=== PATIENT | female | born 1955 | race Caucasian/White ===

== ENCOUNTER 2016-11-21 07:05 | Day surgery (SDC) | payer MEDICAID ==
[2016-11-20 11:08] LABS: HEMATOCRIT 42.2 % (36.0-48.0); HEMOGLOBIN 14.1 g/dL (12-16); MCH 29.6 pg (26.0-34.0); MCHC 33.4 g/dL (31.0-37.0); MCV 88.5 fL (80.0-100.0); MEAN PLATELET VOLUME 10.6 fL (7.4-10.4); RBC 4.77 10x6/uL (4.00-5.40); RDW 12.8 % (11.5-14.5); WBC 8.8 10x3/uL (4.8-10.8)
[2016-11-20 11:26] LABS: ANION GAP 12.9 mmol/L (8-16); CALCIUM 8.9 mg/dL (8.5-10.1); CARBON DIOXIDE 28.6 mmol/L (21.0-32.0); CREATININE - SERUM 0.9 mg/dL (0.6-1.3); POTASSIUM - SERUM 3.5 mmol/L (3.5-5.1)
[~2016-11-21] VITALS: Ht 175.3 cm; Wt 90.7 kg
[2016-11-21 06:33] VITALS: BP 148/88; Ht 175.3 cm; Wt 90.7 kg
[~2016-11-21 07:05] MED LIST: ABILIFY2 MG PO; ADDERALL 20 MG20 M1 PO; FERROUS SULFAT325 MG PO; HYDROCHLOROTH12.5 M1 PO; MOBIC7.5 MG PO; PROZAC20 MG PO; STOOL SOFTENER100 M1 PO; VITAMIN D31000 UNI2 PO; WELLBUTRIN SR150 MG PO
[2016-11-21] MEDS ORDERED: PERCOCET 5-3251 TAB PO (08:19)
--- NOTE | 2016-11-21 11:15 | OP ---
PATIENT NAME: BREANNA BIRD MEDICAL RECORD: [id number] :55 LOCATION:[facility] ADMISSION DATE: SURGEON: RG HAMMOND DO DATE OF OPERATION: 11/21/2016 PROCEDURES PERFORMED: Left knee arthroscopy with partial medial meniscectomy. PREOPERATIVE DIAGNOSIS: Medial meniscal tear. POSTOPERATIVE DIAGNOSES: Medial meniscal tear with chondromalacia, grade III, of the patella, medial femoral condyle and medial tibial plateau. INDICATIONS: Ms. Brid is a 60-year-old female that presented to the office with longstanding left knee pain. She does have some catching, popping, locking. X-rays did show some decreased joint space in the medial side; however, the meniscal symptoms outweigh the osteoarthritis symptoms and she had an MRI, which showed medial meniscal tear. She chose to try the knee scope and then we discussed further surgical options. We consented her for the knee scope with partial medial meniscectomy. DESCRIPTION OF PROCEDURE: Ms. Bird was taken to the operative suite, placed in supine position, given general anesthetic. Timeout was performed, given 2 grams of Ancef preoperatively. The left leg was prepped and draped. Everyone was in agreement with the correct side, site and patient. Once the knee was prepped and draped, the portal sites were injected with 0.25% Marcaine with epinephrine on the medial and lateral anterior portal sites with 4 mL each. At this time, the lateral portal was established with an 11-blade scalpel. The trocar was placed into the knee and up into the suprapatellar pouch. Scope was placed into the cannula and diagnostic arthroscopy began first on the suprapatellar pouch noting some chondromalacia on the patella, mostly on the medial facet. The lateral gutter was then viewed and no loose bodies were seen. Medial gutter was then seen and no loose bodies seen. The knee was then flexed approximately 90 degrees. The medial joint was entered noting the chondromalacia on the femoral condyle on the medial side as well as the tibia, as well as the medial meniscus. The shaver was then entered and cleaned up some of the fat pad and increased viewing. The medial meniscus was then bit out with an upbiter, all the tear was using the shaver as well, using this combo back to a stable position. The medial meniscus was probed at that time and not seen to be unstable after that. Some of the chondromalacia was cleaned up as well with a shaver on the medial femoral condyle as well the tibia. The knee was then brought back into flexion and the ACL was probed and seen to be in good taut and not loose. The probe was then placed behind the lateral femoral condyle and the knee was brought in the figure-four position. The medial compartment was entered and no chondromalacia was seen on the femur or the tibia. The lateral meniscus was probed and did not show any signs of loosening or any tears. The knee was then brought into extension and the suprapatellar pouch was then entered again. A partial synovectomy was done at that time and the knee scope was removed from the knee and excess fluid was drained off. The portal sites were then closed with 4-0 Monocryl in inverted interrupted fashion. Steri-Strips were placed over them. Adaptic, 4 x 4s, ABD, Webril and Brian wrap were then placed over the knee and a knee-high LEONOR hose was placed on the patient. This is all done. The patient was awakened in stable condition taken to recovery. Blood loss was minimal. TRANSINT:[id number] Voice Confirmation ID: [id number] DOCUMENT ID: [id number] OPERATIVE REPORT [id number] BREANNA BIRD MICHAEL D, DO at 1115 CC: [id number] DICTATION DATE: 11/21/16824 ANGLE ROLL OPERATOR: 11/21/16 0937 [id number] [place] [address]
--- NOTE | 2016-11-21 12:04 | NUR ---
0920 C/O PAIN ,PAIN MED GIVE FOR PAIN LEVEL OF 7 1015 CHEL HERE , INSTRUCTED ON USE 1030 IV DC WITH CATHER TIP INTACT
== END 2016-11-21 10:45 | disposition home or self-care (01) ==
LOC: D.OPS 07:05 → D.PAN 07:30 → D.OPS 10:45
PROVIDERS: Anesthesiology
DX: S83.242A Other tear of medial meniscus, current injury, left knee, initial encounter (principal); I10 Essential (primary) hypertension; K21.9 Gastro-esophageal reflux disease without esophagitis; E66.9 Obesity, unspecified; Z68.29 Body mass index [BMI] 29.0-29.9, adult; Z01.812 Encounter for preprocedural laboratory examination

== ENCOUNTER → 2017-02-12 09:44 | Outpatient (CLI) | payer MEDICAID ==
[2016-11-21 06:33] VITALS: BMI 29.6
[~2017-02-12 09:44] MED LIST changes: +PERCOCET 5-3251 TAB PO
== END | disposition home or self-care (01) ==
LOC: D.MRI 02-10 11:00
DX: M25.562 Pain in left knee (principal)

== ENCOUNTER 2017-08-05 08:16 | Outpatient (CLI) | payer MEDICAID ==
[2016-11-21 06:33] VITALS: BMI 29.6
== END 2017-08-05 08:17 | disposition home or self-care (01) ==
LOC: D.MAMMO 08:16
DX: Z12.31 Encounter for screening mammogram for malignant neoplasm of breast (principal)

== ENCOUNTER 2017-09-09 08:00 | Outpatient (CLI) | payer MEDICAID ==
[2016-11-21 06:33] VITALS: BMI 29.6
== END 2017-09-09 09:00 | disposition home or self-care (01) ==
LOC: D.MAMMO 08:00
DX: R92.8 Other abnormal and inconclusive findings on diagnostic imaging of breast (principal)

== ENCOUNTER → 2017-09-18 08:00 | Outpatient (CLI) | payer MEDICAID ==
[2016-11-21 06:33] VITALS: BMI 29.6
== END ==
LOC: D.MAMMO 08:00
DX: R92.8 Other abnormal and inconclusive findings on diagnostic imaging of breast (principal)

== ENCOUNTER → 2018-06-30 17:38 | Outpatient (CLI) | payer OTHER ==
[2016-11-21 06:33] VITALS: BMI 29.6
== END | disposition home or self-care (01) ==
LOC: D.LABREF 17:38
PROVIDERS: ATTEND Orthopaedic Surgery
DX: M17.12 Unilateral primary osteoarthritis, left knee (principal)

== ENCOUNTER 2018-07-06 12:23 | Inpatient (IN) | payer OTHER ==
[~2018-07-06] VITALS: Ht 175.3 cm; Wt 86.8 kg
[2018-07-14 11:49] LABS: CALC OSMOLALITY 277 mosm/kg (275-300); CALCIUM 9.1 mg/dL (8.5-10.1); CARBON DIOXIDE 28.5 mmol/L (21.0-32.0); CHLORIDE - SERUM 101 mmol/L (98-107); CREATININE - SERUM 0.8 mg/dL (0.6-1.3); GLUCOSE 101 mg/dL (74-106); POTASSIUM - SERUM 3.9 mmol/L (3.5-5.1); SODIUM 138 mmol/L (136-145); UREA NITROGEN 18 mg/dL (7-18); eGFR NON AFRICAN AMERICAN 77 mL/min (90-120)
[2018-07-14 11:52] LABS: APTT 27.2 SECONDS (22.8-39.4); INR 0.98 (0.85-1.17); PROTIME 12.5 SECONDS (11.6-15.0)
[2018-07-14 11:56] LABS: BASOPHILS 0.3 % (0-2); EOSINOPHILS 2.8 % (0-7); HEMATOCRIT 44.1 % (36.0-48.0); HEMOGLOBIN 14.7 g/dL (12-16); IMMATURE GRANULOCYTES 0.2 % (0-5); LYMPHOCYTES 22.3 % (15-50); MCH 28.9 pg (26.0-34.0); MCHC 33.3 g/dL (31.0-37.0); MCV 86.6 fL (80.0-100.0); MEAN PLATELET VOLUME 11.1 fL (7.4-10.4); MONOCYTES 7.8 % (2-11); NEUTROPHILS 66.6 % (40-80); PLATELET COUNT 210 10x3/uL (130-400); RBC 5.09 10x6/uL (4.00-5.40); RDW 13.2 % (11.5-14.5)
[2018-07-14 12:28] LABS: APPEARANCE SL CLDY (CLEAR); BACTERIA MODERATE /hpf (NONE SEEN); BILIRUBIN NEGATIVE (NEGATIVE); COLOR YELLOW (YELLOW); EPITHELIAL CELLS 0-5 /hpf (0-5); GLUCOSE NEGATIVE (NEGATIVE); KETONE NEGATIVE (NEGATIVE); MUCUS <1+ /lpf (NONE SEEN); NITRITE NEGATIVE (NEGATIVE); PROTEIN NEGATIVE (NEGATIVE); RED CELLS - URINE 0-5 /hpf (0-5); UROBILINOGEN NORMAL (NORMAL); WHITE CELLS - URINE 0-5 /hpf (0-5)
[2018-07-20 07:31] VITALS: BP 126/91; BMI 28.4
--- NOTE | 2018-07-20 11:28 | NUR ---
PLASMA BLADE USED, GROUNDING PAD LOT [id number] EXP. 09/04/2019
--- NOTE | 2018-07-20 13:25 | NUR ---
PT CONTINUES TO C/O PAIN. DR. PAT AT BEDSIDE TO [facility].
[2018-07-20 15:14] VITALS: BP 130/76; Ht 175.3 cm; Wt 86.8 kg
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
[2018-07-20 18:52] VITALS: BP 110/69
--- NOTE | 2018-07-20 19:54 | NUR ---
RESTING QUEITLY. NO DISTRESS NOTED.GOLDIE WRAP INTACT TO LEFT KNEEE WITHOUT DRAINAGE NOTED. CPM APPLIED.TOLERATING WELL. IV TO RIGHT HAND WITHOUT REDNESS OR EDEMA NOTED. CL IN REACH
[2018-07-20 21:37] VITALS: BP 104/73
[2018-07-20 22:27] LABS: APPEARANCE HAZY (CLEAR); BACTERIA MODERATE /hpf (NONE SEEN); BILIRUBIN NEGATIVE (NEGATIVE); COLOR YELLOW (YELLOW); EPITHELIAL CELLS 0-5 /hpf (0-5); GLUCOSE NEGATIVE (NEGATIVE); KETONE NEGATIVE (NEGATIVE); NITRITE NEGATIVE (NEGATIVE); PROTEIN NEGATIVE (NEGATIVE); RED CELLS - URINE 0-5 /hpf (0-5); SPECIFIC GRAVITY 1.025 (1.005-1.020); UROBILINOGEN NORMAL (NORMAL); WHITE CELLS - URINE 0-5 /hpf (0-5)
[2018-07-21] VITALS (7 sets, daily range): BP systolic 98–120; BP diastolic 52–80
--- NOTE | 2018-07-21 03:51 | NUR ---
I have reviewed this patient and I concur with the Shift Assessment completed by the Licensed Practical Nurse today this shift.
[2018-07-21 06:35] LABS: BASOPHILS 0.1 % (0-2); EOSINOPHILS 0 % (0-7); HEMATOCRIT 39.2 % (36.0-48.0); HEMOGLOBIN 12.7 g/dL (12-16); IMMATURE GRANULOCYTES 0.5 % (0-5); LYMPHOCYTES 6.4 % (15-50); MCH 28.7 pg (26.0-34.0); MCHC 32.4 g/dL (31.0-37.0); MCV 88.5 fL (80.0-100.0); MEAN PLATELET VOLUME 10.9 fL (7.4-10.4); MONOCYTES 6.6 % (2-11); NEUTROPHILS 86.4 % (40-80); PLATELET COUNT 199 10x3/uL (130-400); RBC 4.43 10x6/uL (4.00-5.40); RDW 13.5 % (11.5-14.5); WBC 16.8 10x3/uL (4.8-10.8)
[2018-07-21 06:53] LABS: CALC OSMOLALITY 278 mosm/kg (275-300); CALCIUM 8.5 mg/dL (8.5-10.1); CARBON DIOXIDE 29.5 mmol/L (21.0-32.0); CHLORIDE - SERUM 101 mmol/L (98-107); CREATININE - SERUM 0.7 mg/dL (0.6-1.3); GLUCOSE 129 mg/dL (74-106); POTASSIUM - SERUM 3.8 mmol/L (3.5-5.1); SODIUM 138 mmol/L (136-145); UREA NITROGEN 14 mg/dL (7-18); eGFR NON AFRICAN AMERICAN 90 mL/min (90-120)
--- NOTE | 2018-07-21 08:21 | NUR ---
AAOX4. ON 2LPM VIA NC, IV TO RIGHT HAND, PATENT, INFUSING NS1/2 AT 100ML/HR, CPM PRESENT TO LEFT LEG WITH GOLDIE BANDAGE AND LEONOR HOSES, SCD TO RIGHT LEG, DENIES ANY CURRENT NEEDS OR DISCOMFORTS, BED LOWERED AND LOCKED, CALL LIGHT WITHIN REACH. CPOC
--- NOTE | 2018-07-21 16:29 | MORECARE ---
CASE MANAGEMENT DISCHARGE SUMMARY PATIENT: BREANNA BIRD EZEQUIEL UNIT: [id number] ADM DATE: 07/20/18 AGE: 62 : 55 SEX: F ROOM/BED: D.2229 AUTHOR: TAYLER YOUNG PHYSICIAN: REFERRING PHYSICIAN: RG HAMMOND DO DATE OF SERVICE: 07/21/18 Discharge Plan Patient Name: BREANNA BIRD [facility] [facility] 1955 Planned Disposition: Home Anticipated Discharge Date: Discharge Date: Expected LOS: Initial Reviewer: [email or web address] Initial Review Date: 07/21/2018 Generated: 07/21/18 5:29 pm DCPIA - Discharge Planning Initial Assessment Updated by [email or web address]: Tory Williamson on 07/21/18 4:28 pm * Is the patient Alert and Oriented? Yes * How many steps to enter\exit or inside your home? 2/0 * PCP Nasra Ireland * Pharmacy [facility] on [address] * Preadmission Environment Home with Family * ADLs Independent * Equipment Bedside Commode Other Walker * Other Equipment CPM Ice machine * List name and contact numbers for known caregivers / representatives who currently or will assist patient after discharge: [facility] - [phone] * Verbal permission to speak to the caregivers and representatives has been obtained from the patient. Yes * Community resources currently utilized None * Additional services required to return to the preadmission environment? Yes * Can the patient safely return to the preadmission environment? Yes * Has this patient been hospitalized within the prior 30 days at any hospital? No External Providers External Provider: OTHER-OTHER Next Contact Date: Service Request Date: Service Type: Resolution: Reviewer: Comments: Patient Name: BREANNA BIRD Page [id number] at 1629 All edits/amendments must be made on the electronic document DICTATION DATE: 07/21/181628 DRILLER AND BROACHER: SARA 07/21/181628 RPT#: [id number] DC DATE: STATUS: ADM IN [facility] [address] [place] [address] END OF REPORT
--- NOTE | 2018-07-21 16:38 | MORECARE ---
CASE MANAGEMENT DISCHARGE SUMMARY PATIENT: BREANNA BIRD EZEQUIEL UNIT: [id number] ADM DATE: 07/20/18 AGE: 62 : 55 SEX: F ROOM/BED: D.2229 AUTHOR: HECTOR,DOC PHYSICIAN: REFERRING PHYSICIAN: RG HAMMOND DO DATE OF SERVICE: 07/21/18 Discharge Plan Patient Name: BREANNA BIRD Facility: [facility]:[place] : 1955 Planned Disposition: Home Anticipated Discharge Date: Discharge Date: Expected LOS: Initial Reviewer: [email or web address] Initial Review Date: 07/21/2018 Generated: 07/21/18 5:38 pm Comments DCP- Discharge Planning Updated by [email or web address]: Tory Williamson on 07/21/18 3:[address] Patient Name: BREANNA BIRD Admission Status: Elective Accout number: [id number] Admission Date: 07-20-2018 : 1955 Admission Diagnosis: Attending: RG HAMMOND Current LOS: 1 Anticipated DC Date: Planned Disposition: Home Primary Insurance: [employer] INS EXCHANGE Discharge Planning Comments: CM met with patient to complete initial dc planning assessment. CM educated patient on the CM role and verbal consent given by patient to complete assessment. Patient lives at home with her . At discharge patient plans to return and feels this is a safe discharge. CM discussed availability of home health, rehab services, and medical equipment. Patient states she would like to do outpatient PT at [facility] in [place]. I called and spoke to Tangela and clinical faxed to [phone]. Her first appointment is July 26 at 1:45, patient given a copy of the order with the time. CM will continue to follow and will assist as needed with dc plans/needs. Pharmacy Intake Technician: Tory Williamson DCPIA - Discharge Planning Initial Assessment Updated by [email or web address]: Tory Williamson on 07/21/18 4:28 pm * Is the patient Alert and Oriented? Yes * How many steps to enter\exit or inside your home? 2/0 * PCP Nasra Ireland * Pharmacy [facility] [address] * Preadmission Environment Home with Family * ADLs Independent * Equipment Bedside Commode Other Walker * Other Equipment CPM Ice machine * List name and contact numbers for known caregivers / representatives who currently or will assist patient after discharge: [facility] - [phone] * Verbal permission to speak to the caregivers and representatives has been obtained from the patient. Yes * Community resources currently utilized None * Additional services required to return to the preadmission environment? Yes * Can the patient safely return to the preadmission environment? Yes * Has this patient been hospitalized within the prior 30 days at any hospital? No Last DP export: 07/21/18 3:29 pm Patient Name: BREANNA BIRD Page [id number] at 1638 All edits/amendments must be made on the electronic document DICTATION DATE: 07/21/181637 PSYCHOLOGY TECHNICIAN: SARA 07/21/181637 RPT#: [id number] DC DATE: STATUS: ADM IN [facility] [address] [place] [address] END OF REPORT
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
--- NOTE | 2018-07-21 23:31 | NUR ---
I have reviewed this patient and I concur with the Shift Assessment completed by the Licensed Practical Nurse today this shift.
[2018-07-22 05:02] VITALS: BP 112/75
[2018-07-22 05:31] LABS: BASOPHILS 0.1 % (0-2); EOSINOPHILS 2.4 % (0-7); HEMATOCRIT 36.9 % (36.0-48.0); HEMOGLOBIN 11.9 g/dL (12-16); IMMATURE GRANULOCYTES 0.3 % (0-5); LYMPHOCYTES 18.5 % (15-50); MCH 28.6 pg (26.0-34.0); MCHC 32.2 g/dL (31.0-37.0); MCV 88.7 fL (80.0-100.0); MEAN PLATELET VOLUME 11.3 fL (7.4-10.4); MONOCYTES 10.2 % (2-11); NEUTROPHILS 68.5 % (40-80); PLATELET COUNT 179 10x3/uL (130-400); RBC 4.16 10x6/uL (4.00-5.40); RDW 13.7 % (11.5-14.5)
[2018-07-22 05:45] LABS: CALC OSMOLALITY 279 mosm/kg (275-300); CALCIUM 8.8 mg/dL (8.5-10.1); CARBON DIOXIDE 33.7 mmol/L (21.0-32.0); CHLORIDE - SERUM 103 mmol/L (98-107); CREATININE - SERUM 0.8 mg/dL (0.6-1.3); GLUCOSE 101 mg/dL (74-106); SODIUM 141 mmol/L (136-145); UREA NITROGEN 11 mg/dL (7-18); eGFR NON AFRICAN AMERICAN 77 mL/min (90-120)
[2018-07-22 05:46] LABS: WBC 11.5 10x3/uL (4.8-10.8)
[2018-07-22 05:55] LABS: POTASSIUM - SERUM 3.2 mmol/L (3.5-5.1)
--- NOTE | 2018-07-22 07:50 | NUR ---
PATIENT IN BED WITH IV INTACT. EYES OPEN WITH NO COMPLAINTS. CPM ON. WILL REMOVE AT 0815. CALL LIGHT WITHIN REACH.
[2018-07-22 09:30] VITALS: BP 123/75
--- NOTE | 2018-07-22 09:45 | NUR ---
PATIENT UP AMBULATING WITH PT.
[2018-07-22 12:45] VITALS: BP 128/81
[2018-07-22 17:11] VITALS: BP 140/86
--- NOTE | 2018-07-22 18:45 | NUR ---
PATIENT IN BED WITH IV INTACT. NO COMPLAINTS OR SIGNS OF DISTRESS. CALL LIGHT WITHIN REACH.
[2018-07-22 20:02] VITALS: BP 107/77
--- NOTE | 2018-07-22 20:04 | NUR ---
EYES CLOSED RESP EVEN AND UNLABORED. NO DISTESS NOTED. CL IN REACH
[2018-07-23] VITALS: BP 113/78
--- NOTE | 2018-07-23 00:26 | NUR ---
I have reviewed this patient and I concur with the Shift Assessment completed by the Licensed Practical Nurse today this shift.
[2018-07-23 04:00] VITALS: BP 139/88
[2018-07-23 06:21] LABS: BASOPHILS 0.2 % (0-2); EOSINOPHILS 2.2 % (0-7); HEMATOCRIT 34.8 % (36.0-48.0); HEMOGLOBIN 11.3 g/dL (12-16); IMMATURE GRANULOCYTES 0.2 % (0-5); LYMPHOCYTES 13.8 % (15-50); MCH 28.5 pg (26.0-34.0); MCHC 32.5 g/dL (31.0-37.0); MCV 87.7 fL (80.0-100.0); MEAN PLATELET VOLUME 11.2 fL (7.4-10.4); MONOCYTES 11.5 % (2-11); NEUTROPHILS 72.1 % (40-80); PLATELET COUNT 192 10x3/uL (130-400); RBC 3.97 10x6/uL (4.00-5.40); RDW 13.4 % (11.5-14.5); WBC 10.3 10x3/uL (4.8-10.8)
[2018-07-23 06:35] LABS: CALC OSMOLALITY 282 mosm/kg (275-300); CALCIUM 8.8 mg/dL (8.5-10.1); CHLORIDE - SERUM 105 mmol/L (98-107); CREATININE - SERUM 0.8 mg/dL (0.6-1.3); GLUCOSE 97 mg/dL (74-106); SODIUM 142 mmol/L (136-145); UREA NITROGEN 12 mg/dL (7-18); eGFR NON AFRICAN AMERICAN 77 mL/min (90-120)
[2018-07-23 06:36] LABS: POTASSIUM - SERUM 3.8 mmol/L (3.5-5.1)
[2018-07-23 08:40] VITALS: BP 148/89
[2018-07-23] MEDS ORDERED: ELIQUIS2.5 MG PO (09:23)
[2018-07-23] MEDS ORDERED: OXYCODONE HCL5 M1 PO (09:23)
[2018-07-23] MEDS ORDERED: VISTARIL50 MG PO (09:23)
[2018-07-23] MEDS ORDERED: KEFLEX500 MG PO (09:24)
[2018-07-23] MEDS ORDERED: SULFAMETHOXAZOL1 TA3 PO (09:28)
--- NOTE | 2018-07-23 10:46 | MORECARE ---
CASE MANAGEMENT DISCHARGE SUMMARY PATIENT: BREANNA BIRD EZEQUIEL UNIT: [id number] ADM DATE: 07/20/18 AGE: 62 : 55 SEX: F ROOM/BED: D.2229 AUTHOR: HECTOR,DOC PHYSICIAN: REFERRING PHYSICIAN: RG HAMMOND DO DATE OF SERVICE: 07/23/18 Discharge Plan Patient Name: BREANNA BIRD Facility: [facility]:[place] : 1955 Planned Disposition: Home Anticipated Discharge Date: Discharge Date: Expected LOS: Initial Reviewer: [email or web address] Initial Review Date: 07/21/2018 Generated: 07/23/18 11:46 am Comments DCP- Discharge Planning Updated by [email or web address]: Tory Williamson on 07/23/18 9:[address] Patient Name: BREANNA BIRD Encounter No: [id number] : 1955 Primary Insurance: [employer] INS EXCHANGE Anticipated DC Date: Planned Disposition: Home External Planned Provider: : DCP follow-up note: Patient and family in agreement with discharge plan. No changes to plan. Case management will follow and assist as needed. Tory Williamson DCP- Discharge Planning Updated by [id number]: Tory Williamson on 07/21/18 3:[address] Patient Name: BREANNA BIRD Admission Status: Elective Accout number: [id number] Admission Date: 07-20-2018 : 1955 Admission Diagnosis: Attending: RG HAMMOND Current LOS: 1 Anticipated DC Date: Planned Disposition: Home Primary Insurance: [employer] INS EXCHANGE Discharge Planning Comments: CM met with patient to complete initial dc planning assessment. CM educated patient on the CM role and verbal consent given by patient to complete assessment. Patient lives at home with her . At discharge patient plans to return and feels this is a safe discharge. CM discussed availability of home health, rehab services, and medical equipment. Patient states she would like to do outpatient PT at [facility] in [place]. I called and spoke to Tangela and clinical faxed to [phone]. Her first appointment is July 26 at 1:45, patient given a copy of the order with the time. CM will continue to follow and will assist as needed with dc plans/needs. Clinical Trial Educator: Tory Williamson DCPIA - Discharge Planning Initial Assessment Updated by [email or web address]: Tory Williamson on 07/21/18 4:28 pm * Is the patient Alert and Oriented? Yes * How many steps to enter\exit or inside your home? 2/0 * PCP Nasra Ireland * Pharmacy [facility] [address] * Preadmission Environment Home with Family * ADLs Independent * Equipment Bedside Commode Other Walker * Other Equipment CPM Ice machine * List name and contact numbers for known caregivers / representatives who currently or will assist patient after discharge: [facility] - [phone] * Verbal permission to speak to the caregivers and representatives has been obtained from the patient. Yes * Community resources currently utilized None * Additional services required to return to the preadmission environment? Yes * Can the patient safely return to the preadmission environment? Yes * Has this patient been hospitalized within the prior 30 days at any hospital? No Last DP export: 07/21/18 3:38 pm Patient Name: BREANNA BIRD Page [id number] at 1046 All edits/amendments must be made on the electronic document DICTATION DATE: 07/23/181044 CATERING STAFF MEMBER: SARA 07/23/181044 RPT#: [id number] DC DATE: STATUS: ADM IN [facility] [address] [place] [address] END OF REPORT
--- NOTE | 2018-07-23 11:28 | NUR ---
PATIENT RECIEVED DISCHARGE INSTRUCTION. VERBALIZED UNDERSTANDING. NO QUESTIONS AT THIS TIME. PRESCRIPTIONS GIVEN TO PATIENT WITH COUPON FOR ELIQUIS. DRESSING TO LEFT KNEE CHANGED. ZIP TIES LEFT ON. CLEANDED WITH SALINE AND NEW DRESSING PLACED. IV REMOVED WITH CATH TIP INTACT. CALL LIGHT WITHIN REACH.
== END 2018-07-23 12:21 | disposition home or self-care (01) | DRG 470 ==
LOC: D.SDCHOLD 07-14 10:00 → D.MS 07-20 14:13
PROVIDERS: Internal Medicine Nephrology; ADMIT Orthopaedic Surgery; ATTEND Orthopaedic Surgery
PROC: 0SRD0JZ Replacement of Left Knee Joint with Synthetic Substitute, Open Approach (ICD-10-PCS; principal; 2018-07-20 09:15)
DX: M17.12 Unilateral primary osteoarthritis, left knee (principal); N39.0 Urinary tract infection, site not specified; I10 Essential (primary) hypertension; F32.9 Major depressive disorder, single episode, unspecified; F90.9 Attention-deficit hyperactivity disorder, unspecified type; F41.9 Anxiety disorder, unspecified; G43.909 Migraine, unspecified, not intractable, without status migrainosus; Z87.891 Personal history of nicotine dependence

== ENCOUNTER 2020-05-30 18:49 | Outpatient (CLI) | payer OTHER ==
[2018-07-20 15:14] VITALS: BMI 28.2
[~2020-05-30 18:49] MED LIST changes: +ELIQUIS2.5 MG PO; +KEFLEX500 MG PO; +OXYCODONE HCL5 M1 PO; +SULFAMETHOXAZOL1 TA3 PO; +VISTARIL50 MG PO
== END 2020-05-30 23:59 | disposition home or self-care (01) ==
LOC: D.MAMMO 18:49
PROVIDERS: ATTEND Family Medicine
DX: N63.11 Unspecified lump in the right breast, upper outer quadrant (principal)